=== PATIENT | male | born 1955 | race Caucasian/White ===

== ENCOUNTER → 2016-12-06 | Outpatient (CLI) | payer OTHER ==
[~2016-12-06] MED LIST: ACETAMINOPHEN PO; ALDACTONE25 MG PO; AMIODARONE HCL200 MG; ASPIRIN81 MG PO; COREG PO; ELIQUIS5 MG PO; FUROSEMIDE40 MG PO; GLUCOTROL PO; LANOXIN125 MCG PO; LIPITOR20 MG PO; LISINOPRIL20 MG PO; NO MEDICATIONS; XARELTO20 MG PO
--- NOTE | ~2016-12-06 | EKG ---
PATIENT: KAIN LANDEROS UNIT #: [id number] Ventricular Rate: 84 BPM Atrial Rate: 258 BPM QRS Duration: 100 ms Q-T Interval: 374 ms QTC Calculation(Bezet): 441 ms Calculated R [place]: 30 degrees Calculated T [place]: -48 degrees Diagnosis Line: Atrial fibrillation with premature ventricular or Diagnosis Line: aberrantly conducted complexes Diagnosis Line: Abnormal QRS-T angle, consider primary T wave Diagnosis Line: abnormality Diagnosis Line: Abnormal ECG Diagnosis Line: When compared with ECG of 16-OCT-2016 07:26, Diagnosis Line: No significant change was found Diagnosis Line: Confirmed by BROOKS LUA MD ([id number]) on 12/07/2016 Diagnosis Line: 7:46:23 AM INTERPRETING MD: CHANELL DUQUE
--- NOTE | ~2016-12-06 | EKG ---
PATIENT: KAIN LANDEROS UNIT #: [id number] Ventricular Rate: 48 BPM Atrial Rate: 48 BPM P-R Interval: 182 ms QRS Duration: 92 ms Q-T Interval: 442 ms QTC Calculation(Bezet): 394 ms P [place]: 62 degrees Calculated R [place]: 51 degrees Calculated T [place]: 29 degrees Diagnosis Line: Marked sinus bradycardia with Blocked Premature Diagnosis Line: atrial complexes Diagnosis Line: Nonspecific T wave abnormality Diagnosis Line: Abnormal ECG Diagnosis Line: When compared with ECG of 06-DEC-2016 11:33, Diagnosis Line: (unconfirmed) Diagnosis Line: Sinus rhythm has replaced Atrial fibrillation Diagnosis Line: Vent. rate has decreased BY 36 BPM Diagnosis Line: Confirmed by BROOKS LUA MD ([id number]) on 12/07/2016 Diagnosis Line: 7:47:11 AM INTERPRETING MD: CHANELL DUQUE
[2016-12-06 11:23] LABS: HEMATOCRIT 49.2 % (38.0-50.0); HEMOGLOBIN 16.4 gm/dL (13.0-16.0); MEAN CELL VOLUME 92.3 FL (83-96); MEAN CORPUSCULAR HEMOGLOBIN 30.8 PG (28-34); MEAN CORPUSCULAR HGB CONC 33.3 g/dL (30-36); MEAN PLATELET VOLUME 8.3 FL (6.5-11.5); RED BLOOD COUNT 5.33 X10e (3.90-5.60); RED CELL DISTRIBUTION WIDTH 13.7 % (11.0-15.5); WHITE BLOOD COUNT 6.8 X10e3 (4.0-10.5)
[2016-12-06 11:37] LABS: INR 1.1; PROTHROMBIN TIME (PATIENT) 11.9 SECONDS (9.6-11.5)
[2016-12-06 11:53] LABS: BUN/CREATININE RATIO 22.72; CALCIUM SERUM 9.7 mg/dL (8.4-10.2); CREATININE SERUM 1.1 mg/dL (0.6-1.4); GLOM FILT RATE Estimated 72.1 mL/min (>60); POTASSIUM 4.7 mmol/L (3.5-5.1)
== END | disposition home or self-care (01) ==
LOC: CCVL 10:47
PROVIDERS: Internal Medicine Cardiovascular Disease
DX: I48.91 Unspecified atrial fibrillation (principal); I25.10 Atherosclerotic heart disease of native coronary artery without angina pectoris; E78.5 Hyperlipidemia, unspecified; E11.9 Type 2 diabetes mellitus without complications; Z79.01 Long term (current) use of anticoagulants; I50.9 Heart failure, unspecified; Z79.82 Long term (current) use of aspirin; Z82.49 Family history of ischemic heart disease and other diseases of the circulatory system
CPT/HCPCS: 36415; 80048; 85027; 85610; 85730; 92960; 93005; J0461; J2250; J2310; J3010

== ENCOUNTER → 2017-05-24 | Outpatient (CLI) | payer OTHER ==
[~2017-05-24] VITALS: Ht 180.3 cm; Wt 95.9 kg
--- NOTE | ~2017-05-24 | EKG ---
PATIENT: KAIN LANDEROS UNIT #: [id number] Ventricular Rate: 40 BPM Atrial Rate: 40 BPM P-R Interval: 200 ms QRS Duration: 90 ms Q-T Interval: 486 ms QTC Calculation(Bezet): 396 ms P [place]: 52 degrees Calculated R [place]: 42 degrees Calculated T [place]: 82 degrees Diagnosis Line: Marked sinus bradycardia Diagnosis Line: Nonspecific T wave abnormality Diagnosis Line: Abnormal ECG Diagnosis Line: When compared with ECG of 24-MAY-2017 08:28, Diagnosis Line: (unconfirmed) Diagnosis Line: Sinus rhythm has replaced Atrial fibrillation Diagnosis Line: Vent. rate has decreased BY 23 BPM Diagnosis Line: Confirmed by BROOKS LUA MD ([id number]) on 05/29/2017 Diagnosis Line: 7:35:45 AM INTERPRETING MD: CHANELL DUQUE
--- NOTE | ~2017-05-24 | EKG ---
PATIENT: KAIN LANDEROS UNIT #: [id number] Ventricular Rate: 63 BPM Atrial Rate: 375 BPM QRS Duration: 86 ms Q-T Interval: 406 ms QTC Calculation(Bezet): 415 ms Calculated R [place]: 58 degrees Calculated T [place]: 81 degrees Diagnosis Line: Atrial fibrillation Diagnosis Line: Abnormal ECG Diagnosis Line: When compared with ECG of 06-DEC-2016 14:26, Diagnosis Line: Atrial fibrillation has replaced Sinus rhythm Diagnosis Line: Nonspecific T wave abnormality no longer evident Diagnosis Line: in Inferior leads Diagnosis Line: Confirmed by BROOKS LUA MD ([id number]) on 05/29/2017 Diagnosis Line: 7:35:20 AM INTERPRETING MD: CHANELL DUQUE
--- NOTE | ~2017-05-24 | OR ---
Unit #: [id number] #: [id number] Patient: KAIN LANDEROS [id number] [address] [address] [id number] O MR#: [id number] NAME: KAIN LANDEROS ROOM: Date of Procedure: 05/24/2017 Admission Date: 05/24/2017 Surgeon: Titi Correa M.D. : 1955 Attending Physician: Titi Correa M.D. OPERATIVE REPORT PROCEDURE PERFORMED Direct current shock cardioversion. INDICATION OF PROCEDURE Atrial fibrillation. DESCRIPTION OF PROCEDURE The patient was brought to the cardiac catheterization lab, telemetry was established, O2 saturation was 98%. The patient was given a total of 4 mg of intravenous Versed and 100 mcg of intravenous fentanyl. Because of drop in blood pressure, 100 mcg of intravenous Reilly-Synephrine was given. Using 250 joules per second of biphasic current, DC shock cardioversion was performed, which converted the rhythm to normal sinus. No arrhythmias were precipitated and blood pressure remained normal. IMPRESSION Successful direct current shock cardioversion, atrial fibrillation converted to normal sinus rhythm. No complications were encountered. Dictated by... Noemy Oneal/nancy TD: 05/25/2017 02:52 JOB #: [id number] CC: Monico Fletcher M.D. OPERATIVE REPORT Page 1 of 1 X Titi Correa MD X PROCEDURE OPERATIVE NOTE
[2017-05-24 08:15] LABS: HEMATOCRIT 42.3 % (38.0-50.0); HEMOGLOBIN 14.2 gm/dL (13.0-16.0); MEAN CELL VOLUME 94.6 FL (83-96); MEAN CORPUSCULAR HEMOGLOBIN 31.7 PG (28-34); MEAN CORPUSCULAR HGB CONC 33.5 g/dL (30-36); MEAN PLATELET VOLUME 7.7 FL (6.5-11.5); RED BLOOD COUNT 4.47 X10e (3.90-5.60); WHITE BLOOD COUNT 7.6 X10e3 (4.0-10.5)
[2017-05-24 08:32] LABS: INR 1.2; PARTIAL THROMBOPLASTIN TIME 34.2 SECONDS (23.5-31.3)
[2017-05-24 08:36] LABS: BUN/CREATININE RATIO 24.61; CALCIUM SERUM 9.3 mg/dL (8.4-10.2); CREATININE SERUM 1.3 mg/dL (0.6-1.4); GLOM FILT RATE Estimated 58.9 mL/min (>60); POTASSIUM 5.2 mmol/L (3.5-5.1)
== END | disposition home or self-care (01) ==
LOC: CCVL 07:47
PROVIDERS: Internal Medicine Cardiovascular Disease
DX: I48.91 Unspecified atrial fibrillation (principal); I25.10 Atherosclerotic heart disease of native coronary artery without angina pectoris; E11.9 Type 2 diabetes mellitus without complications; E78.5 Hyperlipidemia, unspecified; Z79.02 Long term (current) use of antithrombotics/antiplatelets; Z87.891 Personal history of nicotine dependence
CPT/HCPCS: 36415; 80048; 82947; 85027; 85610; 85730; 92960; 93005; 99152; 99153; J0461; J2250; J2310; J2370; J3010